=== PATIENT | male | born 2005 | race African-American/Black ===

== ENCOUNTER 2024-06-10 10:31 | Emergency (ER) | payer OTHER, SELFPAY ==
--- NOTE | ~2024-06-10 | XR_ITS ---
EXAMINATION: XR HAND/WRIST, RIGHT CLINICAL INFORMATION: hand inj COMPARISON: None available. TECHNIQUE: PA, lateral, and oblique views of the right hand and an additional navicular view of the right wrist. FINDINGS: The bones and soft tissues are normal. No fracture. Alignment is anatomic. Joint spaces are maintained. No erosions or soft tissue calcifications. XR/XR hand wrist RT IMPRESSION: Normal radiographs of the right hand and wrist. Electronically signed by: Rashawn Ferraro MD 06/10/2024 12:02 PM [facility]
[2024-06-10 10:43] VITALS: BP 125/59; PULSE 50; RESP 18; TEMP 36.8; O2SAT 98; BMI 37.7
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
[2024-06-10 12:21] VITALS: BP 125/59; PULSE 50; RESP 18; TEMP 36.8; O2SAT 98
== END 2024-06-10 12:22 | disposition home or self-care (01) ==
LOC: HO.ED 12:17
PROVIDERS: Emergency Provider Emergency Medicine
DX: S60.221A Contusion of right hand, initial encounter (principal); W22.09XA Striking against other stationary object, initial encounter; Y93.89 Activity, other specified; Y92.9 Unspecified place or not applicable; Y99.9 Unspecified external cause status
CPT/HCPCS: 73110; 73130; 99283; 99284

== ENCOUNTER 2024-08-18 22:00 | Emergency (ER) | payer OTHER, SELFPAY ==
--- NOTE | ~2024-08-18 | XR_ITS ---
CLINICAL HISTORY: pain slammed in door 3 view right hand Comparison: None Findings: Bones intact. No dislocations. No significant arthritic change. No erosions. No radiopaque foreign body. IMPRESSION: 1. No acute findings This document has been electronically signed by: Mic Willis MD on 08/18/2024 22:32:19
[2024-08-18 22:03] VITALS: BP 148/78; PULSE 60; RESP 17; TEMP 36.9; O2SAT 100; BMI 35.3
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
[2024-08-19 01:59] VITALS: BP 129/71; PULSE 56; RESP 17; TEMP 36.7; O2SAT 96
== END 2024-08-19 02:02 | disposition home or self-care (01) ==
PROVIDERS: Emergency Provider Emergency Medicine; PCP Nurse Practitioner Family
DX: S60.221A Contusion of right hand, initial encounter (principal); W22.09XA Striking against other stationary object, initial encounter; Y93.9 Activity, unspecified; Y92.9 Unspecified place or not applicable; Y99.9 Unspecified external cause status
CPT/HCPCS: 73130; 99283; 99284

== ENCOUNTER → 2024-08-18 22:15 | Outpatient (BNV) | payer OTHER, SELFPAY | PROVIDERS: Visit Provider Student in an Organized Health Care Education/Training Program | DX: M79.641 Pain in right hand (principal) | CPT/HCPCS: 73130 ==